=== PATIENT | male | born 1960 | race Caucasian/White ===

== ENCOUNTER 2017-04-14 15:09 | Emergency (ER) | payer OTHER ==
[~2017-04-14] VITALS: Ht 175.3 cm; Wt 81.8 kg
[~2017-04-14 15:09] MED LIST: BENAZEPRIL PO; FENOFIBRATE PO; IBUPROFEN PO; LEVOTHYROXINE PO; LOVASTATIN PO
[2017-04-14 15:25] VITALS: Ht 175.3 cm; Wt 81.8 kg
[2017-04-14] MEDS ORDERED: SOD CHLORIDE 0.9% 1,000 ML IV STA (17:15)
[2017-04-14 17:32] LABS: ADD SCAN DIFF NO
[2017-04-14 17:37] LABS: BASOPHILS % 0.3 % (0.0-2.0); EOSINOPHILS # 0.2 10^3/ul (0.0-0.5); EOSINOPHILS % 1.3 % (0.0-7.0); HEMATOCRIT 39.2 % (42.0-52.0); HEMOGLOBIN 13.3 g/dl (14.0-18.0); LYMPHOCYTES # 1.5 10^3/ul (0.8-2.9); MEAN CORPUSCULAR HEMOGLOBIN 30.9 pg (29.0-33.0); MEAN CORPUSCULAR HGB CONC 33.9 g/dl (32.0-37.0); MEAN PLATELET VOLUME 10.8 fl (7.4-10.4); MONOCYTE # 0.8 10^3/ul (0.3-0.9); MONOCYTES % 6.7 % (0.0-11.0); NEUTROPHIL # 9.8 10^3/ul (1.6-7.5); NEUTROPHILS % 79.4 % (39.0-77.0); PLATELET COUNT 204 10^3/UL (140-415); RED BLOOD COUNT 4.31 10^6/ul (4.70-6.10); RED CELL DISTRIBUTION WIDTH 12.1 % (11.5-14.5); WHITE BLOOD COUNT 12.3 10^3/ul (4.8-10.8)
[2017-04-14] MEDS ORDERED: KETOROLAC 30 MG INJ IV STA (17:45)
[2017-04-14 17:52] LABS: ADD UMIC NO; UR ASCORBIC ACID 40 mg/dL (NEGATIVE); UR BILIRUBIN (Dip) NEGATIVE (NEGATIVE); UR BLOOD (Dip) NEGATIVE (NEGATIVE); UR CLARITY CLEAR (CLEAR); UR COLOR YELLOW (YELLOW); UR GLUCOSE (Dip) NEGATIVE (NEGATIVE); UR KETONES (Dip) NEGATIVE (NEGATIVE); UR LEUKOCYTE ESTERASE (Dip) NEGATIVE Leu/ul (NEGATIVE); UR NITRITE (Dip) NEGATIVE (NEGATIVE); UR TOTAL PROTEIN (Dip) NEGATIVE (NEGATIVE); UR UROBILINOGEN (Dip) NEGATIVE (NEGATIVE)
[2017-04-14 17:58] LABS: ALBUMIN 4.3 g/dl (3.3-4.9); ALBUMIN/GLOBULIN RATIO 1.26; BILIRUBIN,INDIRECT 0.2 mg/dl (0-1.1); BILIRUBIN,TOTAL 0.2 mg/dl (0.2-1.3); CALCIUM 9.4 mg/dl (8.4-10.2); CREATININE 0.94 mg/dl (0.61-1.24); POTASSIUM 4.5 mmol/L (3.5-5.1); TOTAL PROTEIN 7.7 g/dl (6.1-8.1)
[2017-04-14] MEDS ORDERED: LEVO75TA5 PO (18:37)
[2017-04-14] MEDS ORDERED: BENA10TA48 PO (18:38)
[2017-04-14] MEDS ORDERED: LOVA40TA64 PO (18:39)
[2017-04-14] MEDS ORDERED: FENO67CA PO (18:47)
[2017-04-14] MEDS ORDERED: ATOR40TA68 PO (18:48)
--- NOTE | 2017-04-14 18:58 | RADRPT ---
PROCEDURE: XR Abdomen. CLINICAL INDICATION: Abdominal pain TECHNIQUE: Supine and upright views of the abdomen were obtained. COMPARISON: None. FINDINGS: The bowel gas pattern is normal. There is no evidence of obstruction. Scattered stool in the large b owel is seen. No free intraperitoneal air is seen. There are no abnormal calcifications overlying t he urinary tracts. The osseous structures are unremarkable. IMPRESSION: Nonobstructive bowel gas pattern. Scattered stool in the large bowel. RPTAT: HPNM Physician Kai Date Time Electronically viewed and signed by Samson Claire Physician on 04/14/2017 18:58 /
[2017-04-14 19:05] VITALS: BP 128/82; PULSE 64; RESP 20
--- NOTE | 2017-04-14 19:10 | ERD ---
ER Documentation Chief Complaint Date/Time DATE: 04/14/17 TIME: 19:07 Chief Complaint BROUGHT IN VIA EMS DUE TO ABDOMINAL PAIN HPI This is a 56-year-old gentleman with a history of hypertension and hyperlipidemia who presents to the emergency room for evaluation of abdominal pain. This patient states that he was driving his in his car when he developed abdominal pain in the lower portion of his abdomen. He describes his pain as a crampy pain which is in the lower portion of the abdomen with no radiation. Patient denies any nausea, vomiting or diarrhea or fever associated with this. He came to the ER today for evaluation. Patient is denying any aggravating or relieving factors for symptoms. ROS All systems reviewed and are negative except as per history of present illness. Medications Home Meds Reported Medications Atorvastatin* (Atorvastatin*) 40 Mg Tablet, 40 MG PO QHS, #30 TAB 04/14/17 Fenofibrate, Micronized (Fenofibrate) 67 Mg Capsule, 67 MG PO DAILY, CAP 04/14/17 Benazepril Hcl* (Benazepril Hcl*) 10 Mg Tablet, 10 MG PO DAILY, #30 TAB 04/14/17 Levothyroxine Sodium* (Levothyroxine Sodium*) 75 Mcg Tablet, 75 MCG PO BEFORE BREAKFAST, #30 TAB 04/14/17 Discontinued Reported Medications Lovastatin* (Altoprev*) 40 Mg Tab.sr.24h, 40 MG PO HS, TAB 04/14/17 [Ibuprofen] No Conflict Check, PO PRN for PAIN 10/01/14 [Levothyroxine] No Conflict Check, PO DAILY 10/01/14 [Fenofibrate] No Conflict Check, PO DAILY 10/01/14 [Benazepril] No Conflict Check, PO DAILY 10/01/14 [Lovastatin] No Conflict Check, PO DAILY 10/01/14 Allergies Allergies: Coded Allergies: No Known Allergy (Unverified , 04/14/17) PMhx/Soc History of Surgery: Yes (CHOLECYSTECTOMY) Anesthesia Reaction: No Hx Neurological Disorder: Yes Hx Respiratory Disorders: Yes Hx Cardiac Disorders: Yes (HTN, HYPERLIPIDEMIA) Hx Psychiatric Problems: No Hx Miscellaneous Medical Probl: No Hx Alcohol Use: No Hx Substance Use: No Hx Tobacco Use: No Physical Exam Vitals Vital Signs Date Time Temp Pulse Resp B/P Pulse Ox O2 Delivery O2 Flow Rate FiO2 04/14/17 19:05 64 20 128/82 99 Room Air 04/14/17 15:25 97.7 80 20 146/76 98 Physical Exam INITIAL VITAL SIGNS: Reviewed by me GENERAL: The patient is well developed and appropriate for usual state of health in no apparent distress HEENT: Pupils equal, round, and reactive to light. EOMI. There is no scleral icterus. NECK: C-spine is soft and supple, there is no meningismus. There is no cervical lymphadenopathy. LUNGS: Clear to auscultation bilaterally. There are no rales, wheezes or rhonchi. HEART: Regular rate and rhythm, no murmurs, clicks, rubs or gallops. ABDOMEN: Soft, non-tender, non-distended. There are bowel sounds in all four quadrants. No rebound or guarding. EXTREMITIES: There is no peripheral cyanosis or edema. No focal swelling or erythema. NEUROLOGICAL: The patient moves all four extremities with 5/5 strength. Cranial nerves II - XII are intact. Normal gait. Alert and oriented SKIN: There is no apparent rash or petechiae. HEME/LYMPHATIC: There is no evidence of excessive bruising or lymphedema. PSYCHIATRIC: The patient does not appear anxious or depressed. Result Diagram: 04/14/17 1715 04/14/17 1715 Results 24 hrs Laboratory Tests Test 04/14/17 17:15 04/14/17 17:30 White Blood Count 12.310^3/ul Red Blood Count 4.3110^6/ul Hemoglobin 13.3g/dl Hematocrit 39.2% Mean Corpuscular Volume 91.0fl Mean Corpuscular Hemoglobin 30.9pg Mean Corpuscular Hemoglobin Concent 33.9g/dl Red Cell Distribution Width 12.1% Platelet Count 03410^3/UL Mean Platelet Volume 10.8fl Neutrophils % 79.4% Lymphocytes % 12.0% Monocytes % 6.7% Eosinophils % 1.3% Basophils % 0.3% Nucleated Red Blood Cells % 0.0/100WBC Neutrophils # 9.810^3/ul Lymphocytes # 1.510^3/ul Monocytes # 0.810^3/ul Eosinophils # 0.210^3/ul Basophils # 0.010^3/ul Nucleated Red Blood Cells # 0.010^3/ul Sodium Level 143mmol/L Potassium Level 4.5mmol/L Chloride Level 101mmol/L Carbon Dioxide Level 28mmol/L Anion Gap 19 Blood Urea Nitrogen 17mg/dl Creatinine 0.94mg/dl Glucose Level 95mg/dl Calcium Level 9.4mg/dl Total Bilirubin 0.2mg/dl Direct Bilirubin 0.00mg/dl Indirect Bilirubin 0.2mg/dl Aspartate Amino Transf (AST/SGOT) 116IU/L Alanine Aminotransferase (ALT/SGPT) 91IU/L Alkaline Phosphatase 78IU/L Total Protein 7.7g/dl Albumin 4.3g/dl Globulin 3.40g/dl Albumin/Globulin Ratio 1.26 Lipase 289U/L Urine Color YELLOW Urine Clarity CLEAR Urine pH 7.0 Urine Specific [place] 1.020 Urine Ketones NEGATIVEmg/dL Urine Nitrite NEGATIVEmg/dL Urine Bilirubin NEGATIVEmg/dL Urine Urobilinogen NEGATIVEmg/dL Urine Leukocyte Esterase NEGATIVELeu/ul Urine Hemoglobin NEGATIVEmg/dL Urine Glucose NEGATIVEmg/dL Urine Total Protein NEGATIVEmg/dl Current Medications Medications (Trade) Dose Ordered Sig/Steve Route PRN Reason Start Time Stop Time Status Last Admin Dose Admin Sodium Chloride (NS) 1,000 ml @ 1,000 mls/hr Q1H STAT IV 04/14/17 17:15 04/14/17 18:14 DC 04/14/17 17:26 Ketorolac Tromethamine (Toradol) 30 mg ONCE STAT IV 04/14/17 17:45 04/14/17 17:47 DC 04/14/17 17:55 Procedures/MDM X-ray Abdomen 1V Interpreted by me: Free Air: [None] Bowel Gas: [Nonspecific] Soft Tissue: [Normal] This 36-year-old male presents to the ER for evaluation of abdominal pain. When I evaluated this patient he was hemodynamically stable, nontoxic appearing , and in no acute distress. I cannot elicit any pain on my examination of the abdomen. Lab work was obtained which does not show any significant lab abnormality. Urinalysis does not show any blood in urine or any infection. X- rays shows a nonobstructive bowel pattern. The patient was given Toradol states he is feeling better. My suspicion for AAA is low at this time. Patient is in no acute distress and is sitting in bed comfortably. This patient will be discharged at this time with instructions to follow-up with his primary care physician or return to the ER if his symptoms worsen. The patient is comfortable with the plan of care. Differential diagnoses entertained was broad with potential high acuity. Patient has been evaluated for appendicitis, cholecystitis, and other high risk medical and surgical causes of abdominal pain. Ultimately the patient's evaluation is nondiagnostic. Based on the patient's lack of risk factors, as well as the patient's clinical, laboratory, and imaging data, the patient appears to be low risk for these high risk causes of abdominal pain. Departure Diagnosis: Primary Impression: Abdominal pain Additional Impression: Normocytic anemia Condition: CHOLO Guidry DO Apr 14, 2017 19:09
== END 2017-04-14 17:45 | disposition home or self-care (01) ==
LOC: E/R 15:09
DX: R10.30 Lower abdominal pain, unspecified (principal); D64.9 Anemia, unspecified; I10 Essential (primary) hypertension
CPT/HCPCS: 36415; 74010; 80053; 81003; 83690; 85025; 96374; J1885; J7030; Z7502